=== PATIENT | female | born 2000 | race Caucasian/White ===

== ENCOUNTER → 2022-03-10 | Emergency (ER) | payer OTHER ==
[~2022-03-10] VITALS: Ht 160 cm; Wt 65.8 kg
[~2022-03-10] MED LIST: CYCL5TAB PO; CYCLOBENZAPRINE 10 MG TABLET ONE; CYCLOBENZAPRINE 10 MG TABLET PO ONE; IBUPROFEN 600 MG TABLET ONE; IBUPROFEN 600 MG TABLET PO ONE; LIDO30AD10 TP; LIDOCAINE 5% (PATCH) 1 EA PATCH TP ONE; LIDOCAINE 5% (PATCH) 1 EA PATCH TP SCH
[2022-03-10 16:46] VITALS: BP 125/74
== END ==
LOC: ER 16:47
DX: M54.50 Low back pain, unspecified (principal); Z60.2 Problems related to living alone; Z88.0 Allergy status to penicillin